=== PATIENT | male | born 1995 | race Caucasian/White ===

== ENCOUNTER 2025-09-10 12:51 | Outpatient (CLI) | payer MEDICAID, SELFPAY ==
[2025-09-10 17:32] LABS: Chlamydia DNA Amplified* NOT DETECTED (No Detected); GC DNA Amplified* NOT DETECTED (No Detected)
== END 2025-09-10 12:52 | disposition home or self-care (01) ==
PROVIDERS: Visit Provider Nurse Practitioner Family
DX: Z11.3 Encounter for screening for infections with a predominantly sexual mode of transmission (principal); Z11.4 Encounter for screening for human immunodeficiency virus [HIV]
CPT/HCPCS: 86592; 86703; 87491; 87591